=== PATIENT | male | born 1985 | race African-American/Black ===

== ENCOUNTER 2023-12-16 21:25 | Emergency (ER) | payer MEDICARE, MEDICAID ==
[~2023-12-16] VITALS: Ht 188 cm; Wt 107.0 kg
[2023-12-16 21:35] VITALS: O2SAT 100
[2023-12-16 23:23] LABS: BASOPHILS % 0.5 % (0.0-2.0); EOSINOPHILS % 0.1 % (0.0-5.0); HEMOGLOBIN. 13.9 g/dL (14.0-18.0); LYMPHOCYTES % 10.4 % (20.0-50.0); MEAN CORPUSCULAR HEMOGLOBIN 31.4 pg (28.0-32.0); MEAN CORPUSCULAR HGB CONC 33.9 g/dL (31.0-37.0); MEAN CORPUSCULAR VOLUME 92.7 fL (80.0-94.0); MEAN PLATELET VOLUME 8.4 fl (7.4-10.4); MONOCYTES % 8.6 % (2.0-8.0); NEUTROPHILS % 80.4 % (40.0-76.0); PLATELET 222 x1000/uL (130-400); RED BLOOD CELL COUNT 4.43 mill/uL (4.7-6.1); RED CELL DISTRIBUTION WIDTH 13.8 % (11.6-14.6); WHITE BLOOD COUNT 10.5 x1000/uL (4.5-11.0)
[2023-12-16 23:42] LABS: ACETAMINOPHEN < 2 ug/mL (10-30); ALANINE AMINOTRANSFERASE 26 IU/L (10-49); ALBUMIN 4.8 g/dL (3.2-4.8); AMMONIA < 17 uMol/L (<32); ASPARTATE AMINOTRANSFERASE 37 IU/L (<34); BILIRUBIN TOTAL 1.6 mg/dL (0.1-1.0); CALCIUM 9.1 mg/dL (8.7-10.4); CARBON DIOXIDE 24 mEq/L (21-32); CHLORIDE 109 mEq/L (98-107); CREATINE KINASE 618 IU/L (46-171); CREATININE 1.1 mg/dL (0.6-1.3); GLUCOSE 93 mg/dL (70-105); POTASSIUM 3.6 mEq/L (3.5-5.1); PROTEIN TOTAL 7.8 g/dL (6.0-8.3); SODIUM 143 mEq/L (136-145); UREA NITROGEN BLOOD 16 mg/dL (9-23)
[2023-12-16 23:49] LABS: ETHANOL BLOOD < 10 mg/dL (<10)
[2023-12-16] MEDS: SODIUM CHLORIDE 0.9% 1,000 ML IV ONE (23:54)
[2023-12-17 01:41] LABS: CLARITY URINE CLEAR (CLEAR); COLOR URINE YELLOW (YELLOW); GLUCOSE URINE NEGATIVE (NEGATIVE); KETONES URINE 1+ (NEGATIVE); LEUKOCYTE ESTERASE URINE TRACE (NEGATIVE); NITRITE URINE NEGATIVE (NEGATIVE); OCCULT BLOOD URINE NEGATIVE (NEGATIVE); PH URINE 6.5 (4.5-8.0); PROTEIN URINE 2+ (NEGATIVE); SPECIFIC GRAVITY URINE 1.029 (1.005-1.030)
[2023-12-17 01:48] LABS: *AMPHETAMINES SCREEN URINE NEGATIVE (NEGATIVE); *BARBITURATES SCREEN URINE NEGATIVE (NEGATIVE); *BENZODIAZEPINES SCREEN URINE NEGATIVE (NEGATIVE); *COCAINE SCREEN URINE NEGATIVE (NEGATIVE); CANNABINOID URINE SCREEN NEGATIVE (NEGATIVE); ECSTASY MDMA SCREEN URINE NEGATIVE (NEGATIVE); METHADONE URINE SCREEN Neg (NEGATIVE); OPIATES URINE SCREEN NEGATIVE (NEGATIVE); PHENCYCLIDINE URINE SCREEN NEGATIVE (NEGATIVE)
[2023-12-17 03:13] LABS: SQUAMOUS EPITHELIAL CELL URINE FEW /lpf (RARE/1+)
[2023-12-17 03:15] LABS: BACTERIA URINE NONE SEEN; RBC URINE 0-2 /hpf (0-2); WBC URINE 0-2 /hpf (0-2)
[2023-12-17 05:41] VITALS: BP 122/60; PULSE 70; RESP 16; TEMP 98.6
== END 2023-12-17 05:44 | disposition home or self-care (01) ==
LOC: ER 21:25
DX: F29 Unspecified psychosis not due to a substance or known physiological condition (principal); F19.10 Other psychoactive substance abuse, uncomplicated; F17.200 Nicotine dependence, unspecified, uncomplicated; F14.10 Cocaine abuse, uncomplicated; F15.10 Other stimulant abuse, uncomplicated
CPT/HCPCS: 80053; 80307; 80329; 80320; 82140; 82550; 85025; 36415; 96360; 96361; 99283; 80305; 81003; 82962; J7030; G0480

== ENCOUNTER 2023-12-19 06:18 | Emergency (ER) | payer MEDICARE, MEDICAID ==
[~2023-12-19] VITALS: Ht 182.9 cm; Wt 104.0 kg
[2023-12-19 06:21] VITALS: O2SAT 100
[2023-12-19] MEDS: ACETAMINOPHEN 325MG TABLET PO NR (08:30)
[2023-12-19 11:08] VITALS: BP 127/63; PULSE 69; RESP 18; TEMP 98.9
== END 2023-12-19 11:29 | disposition home or self-care (01) ==
LOC: ER 06:18
DX: M25.561 Pain in right knee (principal); M25.571 Pain in right ankle and joints of right foot; F14.10 Cocaine abuse, uncomplicated; F11.20 Opioid dependence, uncomplicated; Z86.59 Personal history of other mental and behavioral disorders; Y04.0XXA Assault by unarmed brawl or fight, initial encounter; Y93.89 Activity, other specified; Y92.89 Other specified places as the place of occurrence of the external cause; Y99.8 Other external cause status
CPT/HCPCS: 71046; 73560; 73610; 99284

== ENCOUNTER 2024-01-12 13:37 | Emergency (ER) | payer MEDICARE, MEDICAID ==
[~2024-01-12] VITALS: Ht 182.9 cm; Wt 100.0 kg
[2024-01-12 13:42] VITALS: O2SAT 99
[2024-01-12 14:13] LABS: HEMATOCRIT. 41.9 % (42.0-52.0); MEAN CORPUSCULAR HGB CONC 33.4 g/dL (31.0-37.0); MEAN PLATELET VOLUME 8.5 fl (7.4-10.4); PLATELET 169 x1000/uL (130-400); RED BLOOD CELL COUNT 4.51 mill/uL (4.7-6.1); RED CELL DISTRIBUTION WIDTH 13.5 % (11.6-14.6); WHITE BLOOD COUNT 8.4 x1000/uL (4.5-11.0)
[2024-01-12 14:17] LABS: DIFFERENTIAL COMMENT 1
[2024-01-12 14:18] LABS: CHLORIDE 110 mEq/L (98-107); POTASSIUM 3.5 mEq/L (3.5-5.1); SODIUM 144 mEq/L (136-145)
[2024-01-12 14:19] LABS: CALCIUM 8.6 mg/dL (8.7-10.4); CARBON DIOXIDE 23 mEq/L (21-32)
[2024-01-12 14:24] LABS: CREATININE 1.2 mg/dL (0.6-1.3); GLUCOSE 103 mg/dL (70-105); UREA NITROGEN BLOOD 10 mg/dL (9-23)
[2024-01-12 14:25] LABS: ALANINE AMINOTRANSFERASE 18 IU/L (10-49)
[2024-01-12 14:26] LABS: ALBUMIN 4.3 g/dL (3.2-4.8); ASPARTATE AMINOTRANSFERASE 24 IU/L (<34); BILIRUBIN TOTAL 0.8 mg/dL (0.1-1.0); PROTEIN TOTAL 6.6 g/dL (6.0-8.3)
[2024-01-12 14:27] LABS: ETHANOL BLOOD < 10 mg/dL (<10)
[2024-01-12 14:33] LABS: PLATELET ESTIMATE NORMAL
[2024-01-12] MEDS ORDERED: TRAZ-251 PO (15:32)
[2024-01-12] MEDS ORDERED: DIVA125T2 PO (15:32)
[2024-01-12] MEDS ORDERED: RISP-28 PO (15:32)
[2024-01-12] MEDS ORDERED: GABA-529 PO (15:32)
[2024-01-12 16:07] VITALS: BP 131/82; PULSE 98; RESP 17; TEMP 98.3
== END 2024-01-12 16:08 | disposition home or self-care (01) ==
LOC: ER 13:58
DX: R45.1 Restlessness and agitation (principal); Z76.0 Encounter for issue of repeat prescription; F14.10 Cocaine abuse, uncomplicated
CPT/HCPCS: 36415; 80053; 80320; 85025; 99283; G0480

== ENCOUNTER 2024-02-17 18:17 | Emergency (ER) | payer MEDICARE, MEDICAID ==
[~2024-02-17] VITALS: Ht 177.8 cm; Wt 91.0 kg
[~2024-02-17 18:17] MED LIST: DIVA125T2 PO; GABA-529 PO; RISP-28 PO; TRAZ-251 PO
[2024-02-17] MEDS: HALOPERIDOL LACTATE 5MG/ML VIAL IM STA (19:19)
[2024-02-17] MEDS: DIPHENHYDRAMINE 50MG/ML VIAL IM STA (19:19)
[2024-02-17] MEDS: MIDAZOLAM HCL 2 MG/2 ML VIAL IM ONE (20:10)
[2024-02-17 20:26] LABS: BASOPHILS % 0.5 % (0.0-2.0); EOSINOPHILS % 0.3 % (0.0-5.0); HEMATOCRIT. 42.5 % (42.0-52.0); MEAN CORPUSCULAR HEMOGLOBIN 30.7 pg (28.0-32.0); MEAN CORPUSCULAR HGB CONC 32.9 g/dL (31.0-37.0); MEAN CORPUSCULAR VOLUME 93.2 fL (80.0-94.0); MEAN PLATELET VOLUME 9.7 fl (7.4-10.4); MONOCYTES % 14.9 % (2.0-8.0); NEUTROPHILS % 66.3 % (40.0-76.0); PLATELET 130 x1000/uL (130-400); RED BLOOD CELL COUNT 4.56 mill/uL (4.7-6.1); RED CELL DISTRIBUTION WIDTH 13.7 % (11.6-14.6); WHITE BLOOD COUNT 9.4 x1000/uL (4.5-11.0)
[2024-02-17 20:31] LABS: CHLORIDE 114 mEq/L (98-107); POTASSIUM 3.6 mEq/L (3.5-5.1); SODIUM 146 mEq/L (136-145)
[2024-02-17 20:32] LABS: CARBON DIOXIDE 23 mEq/L (21-32)
[2024-02-17 20:37] LABS: CREATININE 1.2 mg/dL (0.6-1.3); GLUCOSE 94 mg/dL (70-105); UREA NITROGEN BLOOD 15 mg/dL (9-23)
[2024-02-17 20:38] LABS: ETHANOL BLOOD < 10 mg/dL (<10)
[2024-02-17 22:00] VITALS: O2SAT 99
[2024-02-17 22:56] LABS: CLARITY URINE CLEAR (CLEAR); COLOR URINE YELLOW (YELLOW); GLUCOSE URINE NEGATIVE (NEGATIVE); KETONES URINE TRACE (NEGATIVE); LEUKOCYTE ESTERASE URINE 1+ (NEGATIVE); NITRITE URINE NEGATIVE (NEGATIVE); OCCULT BLOOD URINE NEGATIVE (NEGATIVE); PROTEIN URINE NEGATIVE (NEGATIVE)
[2024-02-17 23:07] LABS: *AMPHETAMINES SCREEN URINE NEGATIVE (NEGATIVE); *BENZODIAZEPINES SCREEN URINE PRESUMPTIVE POSITIVE (NEGATIVE)
[2024-02-17 23:08] LABS: *BARBITURATES SCREEN URINE NEGATIVE (NEGATIVE); *COCAINE SCREEN URINE NEGATIVE (NEGATIVE); CANNABINOID URINE SCREEN NEGATIVE (NEGATIVE); ECSTASY MDMA SCREEN URINE CONF.TEST INDICATED (NEGATIVE); METHADONE URINE SCREEN NEGATIVE (NEGATIVE); OPIATES URINE SCREEN NEGATIVE (NEGATIVE); PHENCYCLIDINE URINE SCREEN NEGATIVE (NEGATIVE)
[2024-02-17 23:26] LABS: RBC URINE NONE SEEN /hpf (0-2)
[2024-02-17 23:27] LABS: BACTERIA URINE TRACE; SQUAMOUS EPITHELIAL CELL URINE FEW /lpf (RARE/1+)
[2024-02-18 11:02] VITALS: BP 140/80; PULSE 80; RESP 19; TEMP 98
== END 2024-02-18 11:11 | disposition home or self-care (01) ==
LOC: ER 18:17
DX: R46.2 Strange and inexplicable behavior (principal); R56.9 Unspecified convulsions
CPT/HCPCS: 80305; 80048; 81003; 80320; 85025; 36415; 70450; 93005; 96372; 99285; J1200; J1630; J2250; G0480